=== PATIENT | male | born 1995 | race Caucasian/White ===

== ENCOUNTER 2016-10-16 14:27 | Emergency (ER) | payer OTHER ==
[2016-10-16 14:51] VITALS: BP 132/68
[2016-10-16] MEDS ORDERED: Tetracaine 0.5% OPTH.SOL 4 ML* 1 DROP BTL RIGHT EYE ONE (15:00)
[2016-10-16] MEDS ORDERED: Fluorescein Sodium TOPICAL* 1 MG TEST OPHTHALMIC ONE (15:01)
[2016-10-16] MEDS ORDERED: Eye Irrigation Solution 30 ML BOTTLE RIGHT EYE ONE (15:01)
--- NOTE | 2016-10-16 15:32 | UC ---
Eye Complaint HPI - HPI Summary HPI Summary: MOWINKirby GRASS 10/15/16 FEELS LIKE SOMETHING HIT RIGHT EYE THEN, SINCE THAT TIME HAS HAD PAIN AND DISCOMFORT IN RIGHT EYE, RIGHT EYE SENSITIVITY WITH LIGHT - History of Current Complaint Chief Complaint: UCEye Stated Complaint: FB IN EYE Time Seen by Provider: 10/16/16 14:51 Hx Obtained From: Patient Onset/Duration: Sudden Onset, Lasting Hours, Still Present Severity Initially: Mild Severity Currently: Moderate Location of Injury: Conjunctiva Character: Dull, Foreign Body Sensation Aggravating Factor(s): Light Alleviating Factor(s): Nothing Associated Signs And Symptoms: Positive: Photophobia, Drainage (Clear). Negative: Drainage (Purulent), Vision Impairment Bilateral, Vision Impairment Right, Vision Impairment Left, Fever, Swelling Related History: Trauma - Risk Factors Penetrating Injury Risk Factor: Negative Globe Rupture Risk Factors: Negative Acute Glaucoma Risk Factors: Negative Optic Artery Occlusion Risk Factors: Negative - Allergies/Home Medications Allergies/Adverse Reactions: Allergies Allergy/AdvReac Type Severity Reaction Status Date / Time No Known Allergies Allergy Verified 10/16/16 14:40 PMH/Surg Hx/FS Hx/Imm Hx Previously Healthy: Yes - Surgical History Surgical History: None Surgery Procedure, Year, and Place: denies - Social History Occupation: Employed Full-time Lives: With Family Alcohol Use: Weekly Substance Use Type: None Smoking Status (MU): Light Every Day Tobacco Smoker Length of Time of Smoking/Using Tobacco: 3 years Review of Systems Constitutional: Negative Skin: Negative Eyes: Eye Redness, Other - RIGHT EYE DISCOMFORT ENT: Negative Respiratory: Negative Cardiovascular: Negative Gastrointestinal: Negative Genitourinary: Negative Motor: Negative Neurovascular: Negative Musculoskeletal: Negative Neurological: Negative Psychological: Negative All Other Systems Reviewed And Are Negative: Yes Physical Exam Triage Information Reviewed: Yes Appearance: Well-Appearing, No Pain Distress, Well-Nourished Vital Signs: Initial Vital Signs Temp 99.0 F 10/16/16 14:35 Pulse 66 10/16/16 14:35 Resp 18 10/16/16 14:35 BP 132/68 10/16/16 14:35 Pulse Ox 97 10/16/16 14:35 Eyes: Positive: Conjunctiva Inflamed, Other: - FLUORESCEIN UPTAKE AT 6OCLOCK RIGHT EYE; NO FOREIGN BODY VISUALIZED ENT Exam: Normal ENT: Positive: Normal ENT inspection, Hearing grossly normal, Pharynx normal, TMs normal Dental Exam: Normal Neck exam: Normal Neck: Positive: Supple, Nontender, No Lymphadenopathy Respiratory Exam: Normal Respiratory: Positive: Chest non-tender, Lungs clear, Normal breath sounds, No respiratory distress, No accessory muscle use Cardiovascular Exam: Normal Cardiovascular: Positive: RRR, No Murmur, Pulses Normal Abdominal Exam: Normal Musculoskeletal Exam: Normal Musculoskeletal: Positive: Strength Intact, ROM Intact Neurological Exam: Normal Psychological Exam: Normal Skin Exam: Normal Eye Complaint Course/Dx - Differential Dx/Diagnosis Differential Diagnosis/HQI/PQRI: Conjunctivitis, Corneal Abrasion Provider Diagnoses: CORNEAL ABRASION RIGHT EYE Discharge - Discharge Plan Condition: Stable Disposition: HOME Prescriptions: Erythromycin OPHTH.OINT* [Ilotycin OPHTH.OINT*] 1 applic RIGHT EYE TID #1 ophth.oint Patient Education Materials: Corneal Abrasion (ED) Referrals: [facility] [place] [facility] [Outside] Dagoberto Hood MD [Medical Doctor] - Sean Jarquin, [Primary Care Provider] -
== END 2016-10-16 15:40 | disposition home or self-care (01) ==
LOC: UCEAST 14:27
DX: S05.01XA Injury of conjunctiva and corneal abrasion without foreign body, right eye, initial encounter (principal); X58.XXXA Exposure to other specified factors, initial encounter; Y93.9 Activity, unspecified; Y92.9 Unspecified place or not applicable; Y99.9 Unspecified external cause status; Z72.0 Tobacco use
CPT/HCPCS: 99202; A9270-GY; G0463

== ENCOUNTER 2017-09-24 20:26 | Emergency (ER) | payer OTHER ==
[2017-09-24 20:43] VITALS: BP 118/70
[2017-09-24] MEDS ORDERED: Ondansetron ODT TAB* 4 MG PO ONE (21:03)
--- NOTE | 2017-09-24 21:13 | UC ---
Abdominal Pain Male HPI - HPI Summary HPI Summary: 22 yo male awoke at 3am with the onset of abd pain/n/v/d Has felt feverish all day pain worse when laying supine - History of Current Complaint Chief Complaint: UCGeneralIllness Stated Complaint: BACK PAIN Time Seen by Provider: 09/24/17 20:50 Hx Obtained From: Patient Onset/Duration: Sudden Onset, Lasting Hours Timing: Constant Severity Initially: Moderate Severity Currently: Moderate Pain Intensity: 6 Pain Scale Used: 0-10 Numeric Location: Diffuse Radiates: Yes Radiates to: Flank Character: Aching, Colicy Aggravating Factor(s): Other - postition Alleviating Factor(s): Nothing Associated Signs And Symptoms: Positive: Fever, Decreased Appetite, Nausea, Vomiting, Diarrhea - Allergies/Home Medications Allergies/Adverse Reactions: Allergies Allergy/AdvReac Type Severity Reaction Status Date / Time No Known Allergies Allergy Verified 09/24/17 20:34 Home Medications: Home Medications NK [No Home Medications Reported] 09/24/17 [History Confirmed 09/24/17] PMH/Surg Hx/FS Hx/Imm Hx Previously Healthy: Yes - Surgical History Surgical History: None Surgery Procedure, Year, and Place: denies - Family History Known Family History: Positive: Hypertension - Social History Alcohol Use: None Substance Use Type: None Smoking Status (MU): Light Every Day Tobacco Smoker Length of Time of Smoking/Using Tobacco: 1 can/ 3 days Review of Systems Constitutional: Fever Skin: Negative Eyes: Negative ENT: Negative Respiratory: Negative Cardiovascular: Negative Gastrointestinal: Abdominal Pain, Vomiting, Diarrhea, Nausea Genitourinary: Negative Motor: Negative Neurovascular: Negative Musculoskeletal: Negative Neurological: Negative Psychological: Negative Is Patient Immunocompromised?: No All Other Systems Reviewed And Are Negative: Yes Physical Exam Triage Information Reviewed: Yes Appearance: Ill-Appearing Vital Signs: Initial Vital Signs Temp 100.4 F 09/24/17 20:35 Pulse 107 09/24/17 20:35 Resp 18 09/24/17 20:35 BP 118/70 09/24/17 20:35 Pulse Ox 96 09/24/17 20:35 Vital Signs Reviewed: Yes Eyes: Positive: Conjunctiva Clear ENT: Positive: Hearing grossly normal, Uvula midline. Negative: Nasal congestion, Nasal drainage, Tonsillar swelling, Tonsillar exudate, Muffled voice , Hoarse voice Neck: Positive: Supple, Nontender, No Lymphadenopathy Respiratory: Positive: Lungs clear, Normal breath sounds, No respiratory distress, No accessory muscle use Cardiovascular: Positive: RRR, No Murmur, Pulses Normal Abdomen Description: Positive: No Organomegaly, Soft. Negative: Nontender - tender RLQ >LLQ, CVA Tenderness (R), CVA Tenderness (L) Bowel Sounds: Positive: Present Musculoskeletal: Positive: ROM Intact, No Edema Neurological: Positive: Alert Psychological Exam: Normal Skin Exam: Normal Abd Pain Male Course/Dx - Course Course Of Treatment: advise he go to the ER for further evaluation of his sympotms - Differential Dx/Clinical Impression Provider Diagnoses: RLQ abd pain of uncertain cause Discharge - Sign-Out/Discharge Documenting (check all that apply): Discharge/Admit/Transfer - Discharge Plan Condition: Stable Disposition: TRANS HIGHER LVL OF CARE FAC Forms: *Work Release Referrals: Sean Jarquin, [Primary Care Provider] - Additional Instructions: This may be a viral gastroenteritis but I think you should go to the ER for further evaluation You are most tender were your appendix is located I suggest you drive straight to the ER from here Don't attempt to eat - Billing Disposition and Condition Condition: STABLE Disposition: Trans Higher Lvl of Care Fac
== END 2017-09-24 21:10 | disposition short-term general hospital (02) ==
LOC: UCEAST 20:26
DX: R10.31 Right lower quadrant pain (principal); R11.2 Nausea with vomiting, unspecified; R19.7 Diarrhea, unspecified; R50.9 Fever, unspecified; Z82.49 Family history of ischemic heart disease and other diseases of the circulatory system; F17.220 Nicotine dependence, chewing tobacco, uncomplicated
CPT/HCPCS: 81003; 99212; A9270-GY; G0463

== ENCOUNTER 2018-11-03 04:00 | Emergency (ER) | payer MEDICAID, OTHER ==
--- NOTE | 2018-11-03 06:22 | ED ---
Lower Extremity - HPI Summary HPI Summary: 23 year old male presents with left ankle injury today. He states that he had some beers and ended up slipping on his front porch. He believes he inverted his ankle. He felt a pop at that time. He thinks he was unable to place weight on the area. No numbness or tingling. Denies any pain. No other injury. No previous fracture to the area. Has no medical conditions. - History of Current Complaint Chief Complaint: EDExtremityLower Stated Complaint: L ANKLE INJURY PER EMS Time Seen by Provider: 11/03/18 05:56 Pain Intensity: 9 - Allergies/Home Medications Allergies/Adverse Reactions: Allergies Allergy/AdvReac Type Severity Reaction Status Date / Time No Known Allergies Allergy Verified 11/03/18 04:04 PMH/Surg Hx/FS Hx/Imm Hx Endocrine/Hematology History: Denies: Hx Diabetes, Hx Thyroid Disease Cardiovascular History: Denies: Hx Hypertension Respiratory History: Denies: Hx Asthma, Hx Chronic Obstructive Pulmonary Disease (COPD) GI History: Denies: Hx Ulcer - Surgical History Surgery Procedure, Year, and Place: denies Infectious Disease History: No Infectious Disease History: Denies: Hx Clostridium Difficile, Hx Hepatitis, Hx Human Immunodeficiency Virus (HIV), Hx of Known/Suspected MRSA, Hx Shingles, Hx Tuberculosis, Hx Known/ Suspected VRE, Hx Known/Suspected VRSA, History Other Infectious Disease, Traveled Outside the in Last 30 Days - Family History Known Family History: Positive: Hypertension - Social History Alcohol Use: None Substance Use Type: Reports: None Smoking Status (MU): Light Every Day Tobacco Smoker Length of Time of Smoking/Using Tobacco: 1 can/ 3 days Review of Systems Negative: Fever Negative: Chest Pain Negative: Shortness Of Breath Positive: Myalgia - left ankle pain All Other Systems Reviewed And Are Negative: Yes Physical Exam Triage Information Reviewed: Yes Vital Signs On Initial Exam: Initial Vitals Temp Pulse Resp BP Pulse Ox 98.5 F 85 16 127/82 98 11/03/18 04:02 11/03/18 04:02 11/03/18 04:02 11/03/18 04:02 11/03/18 04:02 Vital Signs Reviewed: Yes Appearance: Positive: Well-Appearing Skin: Positive: Warm, Dry Head/Face: Positive: Normal Head/Face Inspection Eyes: Positive: Normal, Conjunctiva Clear ENT: Positive: Pharynx normal Respiratory/Lung Sounds: Positive: Clear to Auscultation, Breath Sounds Present Cardiovascular: Positive: Normal, RRR Musculoskeletal: Positive: Limited @ - left ankle, Other - good pulse, tenderness over lateral malleolus left ankle, able to wiggle toes Neurological: Positive: Normal Psychiatric: Positive: Normal Procedures - Splinting ankle Location: left ankle Hand-Made Type: fiberglass Splint: sugar-tong Pre-Proc Neuro Vasc Exam: normal Post-Proc Neuro Vasc Exam: normal Diagnostics - Vital Signs Vital Signs Temp Pulse Resp BP Pulse Ox 11/03/18 05:49 98.3 F 74 16 115/66 98 11/03/18 04:02 98.5 F 85 16 127/82 98 - Laboratory Lab Statement: Any lab studies that have been ordered have been reviewed, and results considered in the medical decision making process. - Radiology ankle, foot Radiology Interpretation Completed By: ED Physician Summary of Radiographic Findings: left fibula fracture Lower Extremity Course/Dx - Course Course Of Treatment: 23 year old male presents with left ankle injury today. He states that he had some beers and ended up slipping on his front porch. He believes he inverted his ankle. He felt a pop at that time. He thinks he was unable to place weight on the area. No numbness or tingling. Denies any pain. No other injury. No previous fracture to the area. Has no medical conditions. On exam tenderness over lateral malleolus of left ankle. X-ray shows nondisplaced fibular fracture. Placed in sugar tong splint. Gave crutches. Told to ice and elevate and follow up with ortho. Patient understands agrees with plan. - Diagnoses Differential Diagnosis/HQI/PQRI: Positive: Fracture (Closed), Sprain, Strain Provider Diagnoses: Left fibular fracture Discharge - Sign-Out/Discharge Documenting (check all that apply): Patient Departure Patient Received Moderate/Deep Sedation with Procedure: No - Discharge Plan Condition: Good Disposition: HOME Patient Education Materials: Ankle Fracture (ED) Referrals: No Primary Care Phys,NOPCP [Primary Care Provider] - Herson Hill MD [Medical Doctor] - Additional Instructions: Use crutches Keep splint on area and keep dry Call ortho office to set up appointment for follow up Use ibuprofen or tyenlol for pain every 6 hours Ice, elevate Return to ED if develop any new or worsening symptoms - Billing Disposition and Condition Condition: GOOD Disposition: Home
[2018-11-03 06:43] VITALS: BP 123/76
== END 2018-11-03 06:41 | disposition home or self-care (01) ==
LOC: ED 04:00
DX: S82.432A Displaced oblique fracture of shaft of left fibula, initial encounter for closed fracture (principal); W18.40XA Slipping, tripping and stumbling without falling, unspecified, initial encounter; Y92.008 Other place in unspecified non-institutional (private) residence as the place of occurrence of the external cause; F17.210 Nicotine dependence, cigarettes, uncomplicated
CPT/HCPCS: 99282

== ENCOUNTER 2019-04-10 14:34 | Emergency (ER) | payer MEDICAID, OTHER ==
[2019-04-10] MEDS ORDERED: Tetan/Diph/Pertus SYR(Tdap)* 0.5 ML SYR(BOOSTRIX) use SYR contains LATEX IM ONE (15:03)
[2019-04-10] MEDS ORDERED: Lidocaine 1% MPF ** 5 ML VIAL INJ ONE (15:03)
--- NOTE | 2019-04-10 15:05 | ED ---
Laceration/Wound HPI - HPI Summary HPI Summary: Patient is a 24-year-old male who presents emergency department for laceration to left upper leg secondary to a chainsaw. Incident occurred just prior to arrival. Patient states he was cutting down branches with a chainsaw when it slipped and cut his left upper leg. No other injuries were sustained. No past medical history. Patient unaware of his last tetanus immunization. Symptoms are mild in severity. No current modifying factors. - History of Current Complaint Stated Complaint: LAC ON LEFT LEG PER PT Time Seen by Provider: 04/10/19 14:51 Hx Obtained From: Patient Pain Intensity: 0 - Allergy/Home Medications Allergies/Adverse Reactions: Allergies Allergy/AdvReac Type Severity Reaction Status Date / Time No Known Allergies Allergy Verified 04/10/19 14:51 PMH/Surg Hx/FS Hx/Imm Hx Previously Healthy: Yes Endocrine/Hematology History: Denies: Hx Diabetes, Hx Thyroid Disease Cardiovascular History: Denies: Hx Hypertension Respiratory History: Denies: Hx Asthma, Hx Chronic Obstructive Pulmonary Disease (COPD) GI History: Denies: Hx Ulcer - Surgical History Surgery Procedure, Year, and Place: denies Infectious Disease History: No Infectious Disease History: Denies: Hx Clostridium Difficile, Hx Hepatitis, Hx Human Immunodeficiency Virus (HIV), Hx of Known/Suspected MRSA, Hx Shingles, Hx Tuberculosis, Hx Known/ Suspected VRE, Hx Known/Suspected VRSA, History Other Infectious Disease, Traveled Outside the in Last 30 Days - Family History Known Family History: Positive: Hypertension, Non-Contributory - Social History Occupation: Employed Full-time Lives: With Family Alcohol Use: Daily Alcohol Amount: ~4-5 cans/day Substance Use Type: Reports: None Smoking Status (MU): Former Smoker Length of Time of Smoking/Using Tobacco: 1 can/ 3 days Review of Systems Positive: Other - laceration left upper leg Neurological: Negative Negative: Weakness, Paresthesia, Numbness All Other Systems Reviewed And Are Negative: Yes Physical Exam Triage Information Reviewed: Yes Vital Signs On Initial Exam: Initial Vitals Temp Pulse Resp BP Pulse Ox 98.7 F 105 14 141/87 97 04/10/19 14:47 04/10/19 14:47 04/10/19 14:47 04/10/19 14:47 04/10/19 14:47 Vital Signs Reviewed: Yes Appearance: Positive: Well-Appearing - Pt. sitting up in bed in NAD. SO present. Skin: Positive: Warm, Dry Head/Face: Positive: Normal Head/Face Inspection Eyes: Positive: Normal, EOMI, LENNY Neck: Positive: Supple Musculoskeletal: Positive: Other - 4cm gaping laceration noted to the mid thigh of left leg. No active bleeding. Full ROM of leg. No muscle or tendon exposure. Neurological: Positive: Normal, CN Intact II-III Psychiatric: Positive: Affect/Mood Appropriate Procedures - Sedation Patient Received Moderate/Deep Sedation with Procedure: No - Laceration/Wound Repair 1 Location: lower extremity Description: Linear Anesthesia: Local, 1.0%, Lido Length, Depth and Shape: 4 cm, linear Betadine Prep?: No - hibiclens Irrigated w/ Saline (ccs): 500 Laceration/Wound Explored: clean Closure: Single Layer Debridement: minimal Suture Type: Nylon Number of Sutures: 5 Layer Closure?: No Sterile Dressing Applied?: Yes Diagnostics - Vital Signs Vital Signs Temp Pulse Resp BP Pulse Ox 04/10/19 14:47 98.7 F 105 14 141/87 97 - Laboratory Lab Statement: Any lab studies that have been ordered have been reviewed, and results considered in the medical decision making process. Laceration Repair Course/Dx - Course Course Of Treatment: Patient was superficial laceration to left upper leg from [facility]. Tetanus was updated. Wound was extensively irrigated and cleaned. Closed as noted above. Will prophylactically place on Keflex. Suture removal in 10 days. Keep wound clean and dry. Advised to avoid excessive activity with leg. Return to the ER for redness, swelling or drainage from suture site. Patient understands and agrees with plan. - Differential Dx Differental Diagnoses: Avulsion, Fracture, Joint Space Violation, Puncture Wound , Tendon Laceration - Clinical Impression Provider Diagnoses: Leg laceration Discharge ED - Sign-Out/Discharge Documenting (check all that apply): Patient Departure - Discharge Plan Condition: Improved Disposition: HOME Prescriptions: Cephalexin CAP* [Keflex CAP*] 500 mg PO BID #20 cap Patient Education Materials: Care For Your Stitches (ED), Laceration (ED) Referrals: [facility] [Outside] Additional Instructions: Suture removal in 10 days Antibiotic as directed Keep wound clean and dry Avoid excessive activity Return to ER for redness, swelling, or drainage from wound - Billing Disposition and Condition Condition: IMPROVED Disposition: Home - Attestation Statements Provider Attestation: I was available for consult. This patient was seen by the PATRICE. The patient was not presented to, seen by, or examined by me. Francisco Reyes MD
[2019-04-10 15:50] VITALS: BP 131/61
== END 2019-04-10 15:49 | disposition home or self-care (01) ==
LOC: ED 14:34
DX: S81.812A Laceration without foreign body, left lower leg, initial encounter (principal); Z23 Encounter for immunization; W29.3XXA Contact with powered garden and outdoor hand tools and machinery, initial encounter; Y93.H2 Activity, gardening and landscaping; Y92.9 Unspecified place or not applicable; Z87.891 Personal history of nicotine dependence
CPT/HCPCS: 12002; 90471; 90715; 99282

== ENCOUNTER 2019-04-19 18:55 | Emergency (ER) | payer OTHER ==
--- NOTE | 2019-04-19 19:02 | UC ---
Laceration HPI - HPI Summary HPI Summary: 24 yo male presents for suture removal. He had 5 sutures placed on 04/10 to left anterior thigh. Has been healing well without pain, redness, or drainage. No fevers. - History Of Current Complaint Stated Complaint: SUTURE REMOVAL Time Seen by Provider: 04/19/19 18:57 Hx Obtained From: Patient Laceration Location: Leg Mechanism Of Injury: Sharp Trauma - Allergies/Home Medications Allergies/Adverse Reactions: Allergies Allergy/AdvReac Type Severity Reaction Status Date / Time No Known Allergies Allergy Verified 04/19/19 19:23 PMH/Surg Hx/FS Hx/Imm Hx - Additional Past Medical History Additional PMH: None - Surgical History Surgical History: None Surgery Procedure, Year, and Place: denies - Family History Known Family History: Positive: Hypertension, Non-Contributory - Social History Lives: With Family Alcohol Use: Daily Alcohol Amount: ~4-5 cans/day Substance Use Type: None Smoking Status (MU): Former Smoker Length of Time of Smoking/Using Tobacco: 1 can/ 3 days Household Exposure Type: Cigarettes Review of Systems All Other Systems Reviewed And Are Negative: No Constitutional: Positive: Negative Skin: Positive: Other - leg laceration with sutures in place Respiratory: Positive: Negative Cardiovascular: Positive: Negative Neurological: Positive: Negative Psychological: Positive: Negative Physical Exam - Summary Physical Exam Summary: GENERAL: NAD. WDWN. No pain distress. SKIN: LEFT THIGH: Anterior aspect with 4.0cm laceration [address] Scab present. Well healed and approximated. No erythema, edema, or drainage. NECK: Supple. Nontender. No lymphadenopathy. CHEST: No accessory muscle use. Breathing comfortably and in no distress. CV: Pulses intact. Cap refill <2seconds NEURO: Alert. PSYCH: Age appropriate behavior. Triage Information Reviewed: Yes Vital Signs: Vital Signs: Temp Pulse Resp BP Pulse Ox 98.6 F 83 12 126/77 98 04/19/19 19:17 04/19/19 19:17 04/19/19 19:17 04/19/19 19:17 04/19/19 19:17 Vital Signs Reviewed: Yes Laceration Course/Dx - Course/Dx Course Of Treatment: 5 sutures removed without difficulty. Steri strips applied - Diagnosis Provider Diagnosis: Visit for suture removal Discharge ED - Sign-Out/Discharge Documenting (check all that apply): Patient Departure All imaging exams completed and their final reports reviewed: No Studies - Discharge Plan Condition: Stable Disposition: HOME Patient Education Materials: Stitches Removal (ED) Referrals: No Primary Care Phys,NOPCP [Primary Care Provider] - Additional Instructions: Change the bandage daily until well healed - Billing Disposition and Condition Condition: STABLE Disposition: Home
[2019-04-19 19:22] VITALS: BP 126/77
== END 2019-04-19 19:27 | disposition home or self-care (01) ==
LOC: UCEAST 18:55
DX: S71.112D Laceration without foreign body, left thigh, subsequent encounter (principal); X58.XXXD Exposure to other specified factors, subsequent encounter; Z87.891 Personal history of nicotine dependence

== ENCOUNTER 2019-05-17 17:58 | Emergency (ER) | payer MEDICAID ==
[2019-05-17] MEDS ORDERED: Benzonatate CAP* 100 MG PO ONE (18:50)
[2019-05-17] MEDS ORDERED: Ibuprofen TAB* 600 MG PO ONE (18:50)
--- NOTE | 2019-05-17 18:50 | ED ---
Influenza-Like Illness - HPI Summary HPI Summary: Patient complains of dry cough, body aches, chills, headache, sore throat with cough 1 day. Took DayQuil 8 hours ago. Denies known fever, neck stiffness, CP , SOB, N/3/D, abdominal pain, change in urine, change in BM. Medical history is none. - History of Current Complaint Chief Complaint: EDFluSymptoms Time Seen by Provider: 05/17/19 18:45 Hx Obtained From: Patient Onset/Duration: Lasting Hours Severity: Moderate Associated Signs & Symptoms: Myalgia, Cough, Sore Throat, Headache - Allergy/Home Medications Allergies/Adverse Reactions: Allergies Allergy/AdvReac Type Severity Reaction Status Date / Time No Known Allergies Allergy Verified 04/19/19 19:23 PMH/Surg Hx/FS Hx/Imm Hx Endocrine/Hematology History: Denies: Hx Diabetes, Hx Thyroid Disease Cardiovascular History: Denies: Hx Hypertension Respiratory History: Denies: Hx Asthma, Hx Chronic Obstructive Pulmonary Disease (COPD) GI History: Denies: Hx Ulcer History: Denies: Hx Dialysis Sensory History: Denies: Hx Eye Prosthesis Opthamlomology History: Denies: Hx Legally Blind EENT History: Denies: Hx Deafness - Surgical History Surgery Procedure, Year, and Place: denies Infectious Disease History: No Infectious Disease History: Denies: Hx Clostridium Difficile, Hx Hepatitis, Hx Human Immunodeficiency Virus (HIV), Hx of Known/Suspected MRSA, Hx Shingles, Hx Tuberculosis, Hx Known/ Suspected VRE, Hx Known/Suspected VRSA, History Other Infectious Disease, Traveled Outside the [place] in Last 30 Days - Family History Known Family History: Positive: Hypertension, Non-Contributory - Social History Alcohol Use: None Alcohol Amount: ~4-5 cans/day Substance Use Type: Reports: None Smoking Status (MU): Former Smoker Length of Time of Smoking/Using Tobacco: 1 can/ 3 days Review of Systems Constitutional: Negative Eyes: Negative ENT: Negative Cardiovascular: Negative Positive: Cough Gastrointestinal: Negative Genitourinary: Negative Positive: Myalgia Skin: Negative Positive: Headache Psychological: Normal All Other Systems Reviewed And Are Negative: Yes Physical Exam Triage Information Reviewed: Yes Vital Signs On Initial Exam: Initial Vitals Temp Pulse Resp BP Pulse Ox 98.7 F 106 18 138/85 97 05/17/19 18:08 05/17/19 18:08 05/17/19 18:08 05/17/19 18:08 05/17/19 18:08 Vital Signs Reviewed: Yes Appearance: Positive: Well-Appearing Skin: Positive: Warm Head/Face: Positive: Normal Head/Face Inspection Eyes: Positive: Normal ENT: Positive: Normal ENT inspection Neck: Positive: Supple Respiratory/Lung Sounds: Positive: Clear to Auscultation Cardiovascular: Positive: Normal Abdomen Description: Positive: Nontender Musculoskeletal: Positive: Normal Neurological: Positive: Normal Psychiatric: Positive: Normal AVPU Assessment: Alert - Kathie Coma Scale Best Eye Response: 4 - Spontaneous Best Motor Response: 6 - Obeys Commands Best Verbal Response: 5 - Oriented Coma Scale Total: 15 Procedures - Sedation Patient Received Moderate/Deep Sedation with Procedure: No Diagnostics - Vital Signs Vital Signs Temp Pulse Resp BP Pulse Ox 05/17/19 18:08 98.7 F 106 18 138/85 97 - Laboratory Lab Statement: Any lab studies that have been ordered have been reviewed, and results considered in the medical decision making process. Flu Symptom Course/Dx - Course Course Of Treatment: Patient complains of dry cough, body aches, chills, headache, sore throat with cough 1 day. Took DayQuil 8 hours ago. Denies known fever, neck stiffness, CP, SOB, N/3/D, abdominal pain, change in urine, change in BM. Medical history is none. Vital signs within normal limits. Positive for flu b - Diagnoses Provider Diagnoses: Flu Discharge ED - Sign-Out/Discharge Documenting (check all that apply): Patient Departure - Discharge Plan Condition: Stable Disposition: HOME Prescriptions: Benzonatate CAP* [Tessalon 100 MG CAP*] 200 mg PO TID 6 Days #40 cap Oseltamivir CAP* [Tamiflu CAP*] 75 mg PO BID 5 Days #10 cap Patient Education Materials: Influenza (ED) Referrals: No Primary Care Phys,NOPCP [Primary Care Provider] - Additional Instructions: Take Tessalon as directed for cough. Take Tamiflu as directed for flu. Alternate ibuprofen 600 mg with Tylenol 650 mg every 3 hours to control body aches and fever. Return to the ED for any new or worsening symptoms. - Billing Disposition and Condition Condition: STABLE Disposition: Home - Attestation Statements Provider Attestation: I was available for consultation for this patient. I did not evaluate the patient, or participate in any medical decision making or disposition decisions unless I am specifically named in the chart as having consulted on the patient. If I have consulted on the patient, please see my own ED note on the patient encounter. Helena Eller MD
[2019-05-17 19:25] LABS: Influenza B Molecular Positive (Negative)
[2019-05-17] MEDS ORDERED: Oseltamivir CAP* 75 MG CAP PO ONE (19:28)
[2019-05-17 19:55] VITALS: BP 128/80
== END 2019-05-17 19:50 | disposition home or self-care (01) ==
LOC: ED 17:58
DX: J10.1 Influenza due to other identified influenza virus with other respiratory manifestations (principal); Z87.891 Personal history of nicotine dependence
CPT/HCPCS: 99282; A9270-GY

== ENCOUNTER 2019-05-22 19:22 | Emergency (ER) | payer MEDICAID ==
[2019-05-22 19:33] VITALS: BP 127/74
[2019-05-22] MEDS ORDERED: guaiFENesin/CODIENE 100mg/10mg 5 ML UDC PO ONE (19:47)
--- NOTE | 2019-05-22 19:47 | UC ---
Respiratory Complaint HPI - HPI Summary HPI Summary: He was diagnosed with influenza 5 days ago and finished his Tamiflu today. He was given Tessalon for his cough but is unable to sleep at night. Also his throat has begun to hurt a lot today and is concerned he has strep. - History of Current Complaint Chief Complaint: UCRespiratory Stated Complaint: cough Time Seen by Provider: 05/22/19 19:34 Hx Obtained From: Patient Onset/Duration: Gradual Onset, Lasting Days Timing: Constant Severity Initially: Moderate Severity Currently: Moderate Pain Intensity: 5 Character: Cough: Nonproductive Aggravating Factors: Nothing Alleviating Factors: Nothing Associated Signs And Symptoms: Positive: Fever, Nasal Congestion - Allergies/Home Medications Allergies/Adverse Reactions: Allergies Allergy/AdvReac Type Severity Reaction Status Date / Time No Known Allergies Allergy Verified 05/22/19 19:33 PMH/Surg Hx/FS Hx/Imm Hx Previously Healthy: Yes - Surgical History Surgical History: None Surgery Procedure, Year, and Place: denies - Family History Known Family History: Positive: Hypertension, Non-Contributory - Social History Alcohol Use: Daily Alcohol Amount: ~4-5 cans/day Substance Use Type: None Smoking Status (MU): Former Smoker Type: Smokeless Tobacco Length of Time of Smoking/Using Tobacco: 1 can/ 3 days Household Exposure Type: Cigarettes Review of Systems All Other Systems Reviewed And Are Negative: Yes Constitutional: Positive: Fever Skin: Positive: Negative Eyes: Positive: Negative ENT: Positive: Sore Throat, Nasal Discharge Respiratory: Positive: Cough Cardiovascular: Positive: Negative Gastrointestinal: Positive: Negative Neurological: Positive: Negative Physical Exam - Summary Physical Exam Summary: He is nontoxic in appearance with stable vital signs. Triage Information Reviewed: Yes Vital Signs: Initial Vital Signs Temp 98.0 F 05/22/19 19:28 Pulse 85 05/22/19 19:28 Resp 16 05/22/19 19:28 BP 127/74 05/22/19 19:28 Pulse Ox 98 05/22/19 19:28 Vital Signs Reviewed: Yes Eye Exam: Normal ENT: Positive: Pharyngeal erythema, Nasal congestion Neck: Positive: Supple, Nontender, No Lymphadenopathy Respiratory Exam: Normal Respiratory: Positive: Chest non-tender, Lungs clear, Normal breath sounds, No respiratory distress, No accessory muscle use Cardiovascular Exam: Normal Abdominal Exam: Normal Respiratory Course/Dx - Course Course Of Treatment: I am going to give him symptomatic with guaifenesin and codeine. We discussed the nature of the medication and surrounding concerns. - Differential Dx/Diagnosis Provider Diagnosis: Influenza Discharge ED - Sign-Out/Discharge Documenting (check all that apply): Patient Departure All imaging exams completed and their final reports reviewed: No Studies - Discharge Plan Condition: Stable Disposition: HOME Referrals: No Primary Care Phys,NOPCP [Primary Care Provider] - - Billing Disposition and Condition Condition: STABLE Disposition: Home
[2019-05-22] MEDS: guaiFENesin/CODIENE 100mg/10mg 5 ML UDC PO ONE ×2 (20:05→20:07)
== END 2019-05-22 20:07 | disposition home or self-care (01) ==
LOC: UCEAST 19:22
DX: J11.1 Influenza due to unidentified influenza virus with other respiratory manifestations (principal); Z87.891 Personal history of nicotine dependence
CPT/HCPCS: 87651; 99212; A9270-GY; G0463